=== PATIENT | male | born 1955 | race Caucasian/White ===

== ENCOUNTER 2016-08-15 21:48 | Emergency (ER) | payer MEDICARE ==
[~2016-08-15] VITALS: Ht 182.9 cm; Wt 102.5 kg
[2016-08-15 22:01] VITALS: BP 118/75
[2016-08-15] MEDS ORDERED: PANTOPRAZOLE 40 MG IV IVPush STA (22:37)
[2016-08-15] MEDS ORDERED: PANTOPRAZOLE 40 MG IV ONE (22:56)
[2016-08-15] MEDS ORDERED: ONDANSETRON 2MG/ML, 2ML ONE (22:57)
[2016-08-15] MEDS ORDERED: ONDANSETRON 2MG/ML, 2ML IVPush ONE (23:00)
[2016-08-15] MEDS ORDERED: SODIUM CHLORIDE 0.9% 1,000ML IVBOLUS ONE (23:00)
== END 2016-08-15 23:12 | disposition home or self-care (01) ==
LOC: ED 22:42
DX: R11.2 Nausea with vomiting, unspecified (principal)
CPT/HCPCS: 99283

== ENCOUNTER 2017-05-12 09:23 | Emergency (ER) | payer MEDICARE ==
[~2017-05-12] VITALS: Ht 180.3 cm; Wt 70.0 kg
[2017-05-12] MEDS ORDERED: DIAZ2TAB PO (09:58)
[2017-05-12 13:01] VITALS: BP 121/79
== END 2017-05-12 13:03 ==
LOC: ED 10:56
DX: S01.81XA Laceration without foreign body of other part of head, initial encounter (principal); M19.90 Unspecified osteoarthritis, unspecified site; Z86.73 Personal history of transient ischemic attack (TIA), and cerebral infarction without residual deficits; X58.XXXA Exposure to other specified factors, initial encounter; Y93.89 Activity, other specified; Y92.89 Other specified places as the place of occurrence of the external cause; Y99.9 Unspecified external cause status
CPT/HCPCS: 99283; 99285

== ENCOUNTER 2017-05-23 12:12 | Inpatient (IN) | payer MEDICARE ==
[~2017-05-23] VITALS: Ht 182.9 cm; Wt 69.3 kg
[~2017-05-23 12:12] MED LIST: DIAZ2TAB PO
[2017-05-23] MEDS ORDERED: SODIUM CHLORIDE FLUSH 10ML SYR IVF ONE (13:00)
[2017-05-23 13:11] LABS: MEAN CORPUSCULAR HEMOGLOBIN 25.7 pg (27.5-34.5); MEAN CORPUSCULAR HGB CONC 32.3 g/dL (33.2-36.2); MEAN CORPUSCULAR VOLUME 79.6 fL (81-97); MEAN PLATELET VOLUME 7.1 fL (7.4-10.4); PLATELET COUNT 376 x10^3/uL (130-400); RED BLOOD COUNT 4.93 x10^6/uL (4.38-5.82); RED CELL DISTRIBUTION WIDTH 16.4 % (9.4-14.8)
[2017-05-23 13:18] LABS: ALBUMIN 2.6 g/dL (3.4-5.0); ANION GAP 7 mmol/L (5-15); CALCIUM 8.9 mg/dL (8.5-10.1); CHLORIDE 104 mmol/L (98-107); CREATININE 0.84 mg/dL (0.7-1.3)
[2017-05-23] MEDS ORDERED: SODIUM CHLORIDE 0.9% 1,000 ML IV ONE (13:45)
[2017-05-23 13:54] LABS: MD YES
[2017-05-23 13:56] LABS: BAND#(MANUAL) 1.95 x10^3/uL; BANDS%(MANUAL) 9 % (0-7); LYMPH#(MANUAL) 0.65 x10^3/uL (1-3.4); LYMPHS% (MANUAL) 3 % (22-44); MONOS% (MANUAL) 6 % (2-9); SEG#(MANUAL) 17.79 x10^3/uL (1.8-6.8); SEGS% (MANUAL) 82 % (42-75)
[2017-05-23 13:57] LABS: <PLATELET ESTIMATE> ADEQUATE; <PLT MORPHOLOGY> NORMAL PLT MORPH; <RBC MORPHOLOGY> NORMAL
[2017-05-23] MEDS ORDERED: LEVOFLOXACIN/PMX 500MG/100ML 100 ML ONE (13:59)
[2017-05-23] MEDS ORDERED: SODIUM CHLORIDE FLUSH 10ML SYR IVF PRN (14:00)
[2017-05-23] MEDS ORDERED: LEVOFLOXACIN/PMX 500MG/100ML 100 ML IVPB ONE (14:00)
[2017-05-23] MEDS ORDERED: ARTIFICIAL TEARS OPHTH SOLN 15ML EACHEYE PRN (15:00)
[2017-05-23] MEDS ORDERED: LABETALOL 5MG/ML, 20ML IVPush PRN (15:00)
[2017-05-23] MEDS ORDERED: POLYETHYLENE GLYCOL 17 GM PACKET PO PRN (15:00)
[2017-05-23] MEDS ORDERED: ONDANSETRON ODT 4 MG PO PRN (15:00)
[2017-05-23] MEDS: AMPICILLIN/SULBACTAM 3 GM in SODIUM CHLORIDE 0.9% 100 ML IV SCH ×2 (15:31→21:48)
[2017-05-23] MEDS: ENOXAPARIN 40 MG/0.4 ML SQ SCH (16:00)
[2017-05-23 17:45] VITALS: BP 107/68
[2017-05-23] MEDS: DOXYCYCLINE 100MG TABLET PO SCH (21:46)
[2017-05-23] MEDS: DIAZEPAM 2 MG TABLET PO SCH (21:47)
[2017-05-24 01:14] VITALS: BP 111/69
[2017-05-24] MEDS: AMPICILLIN/SULBACTAM 3 GM in SODIUM CHLORIDE 0.9% 100 ML IV SCH ×4 (03:37→21:33)
[2017-05-24 06:51] VITALS: BP 96/59
[2017-05-24 08:02] LABS: ALANINE AMINOTRANSFERASE 11 U/L (12-78); ALBUMIN 2.1 g/dL (3.4-5.0); ANION GAP 7 mmol/L (5-15); CALCIUM 8.1 mg/dL (8.5-10.1); CHLORIDE 105 mmol/L (98-107); CREATININE 0.65 mg/dL (0.7-1.3)
[2017-05-24 08:04] LABS: ALKALINE PHOSPHATASE 80 U/L (45-117); BILIRUBIN,TOTAL 0.2 mg/dL (0.2-1.0); TOTAL PROTEIN 5.9 g/dL (6.4-8.2)
[2017-05-24 08:07] LABS: MEAN CORPUSCULAR HEMOGLOBIN 25.6 pg (27.5-34.5); MEAN CORPUSCULAR HGB CONC 32.4 g/dL (33.2-36.2); MEAN CORPUSCULAR VOLUME 79.2 fL (81-97); PLATELET COUNT 323 x10^3/uL (130-400); RED BLOOD COUNT 4.15 x10^6/uL (4.38-5.82); RED CELL DISTRIBUTION WIDTH 16.3 % (9.4-14.8)
[2017-05-24 08:25] LABS: BASOPHILS # (AUTO) 0.01 x10^3/uL (0-0.1); BASOPHILS % (AUTO) 0 % (0-1); EOSINOPHILS # (AUTO) 0.03 x10^3/uL (0-0.4); EOSINOPHILS % (AUTO) 0 % (1-7); LYMPHOCYTES # (AUTO) 1.04 x10^3/uL (1-3.4); LYMPHOCYTES % (AUTO) 7 % (22-44); MD MORPH REVIEW ONLY; MONOCYTES # (AUTO) 1.12 x10^3/uL (0.2-0.8); MONOCYTES % (AUTO) 8 % (2-9); NEUTROPHILS # (AUTO) 11.91 x10^3/uL (1.8-6.8); NEUTROPHILS % (AUTO) 84 % (42-75)
[2017-05-24 08:26] LABS: ANISOCYTOSIS 1+; HYPOCHROMIA 1+; MICROCYTOSIS 1+
[2017-05-24 08:27] LABS: <PLATELET ESTIMATE> ADEQUATE; <PLT MORPHOLOGY> NORMAL PLT MORPH; POLYCHROMASIA 1+
[2017-05-24] MEDS: DIVALPROEX 500 MG TAB.ER.24H PO SCH (11:18)
[2017-05-24] MEDS: SENNA/DOCUSATE TABLET PO SCH (11:18)
[2017-05-24] MEDS: DOXYCYCLINE 100MG TABLET PO SCH ×2 (11:18→21:32)
[2017-05-24] MEDS ORDERED: MAGNESIUM SULFATE PMX 2GM/50ML 50 ML IV ONE (11:30)
[2017-05-24] MEDS: IRON SUCROSE COMPLEX 100MG/5ML IV SCH (13:59)
[2017-05-24 15:04] VITALS: BP 100/64
[2017-05-24] MEDS: ENOXAPARIN 40 MG/0.4 ML SQ SCH (16:22)
[2017-05-24 21:29] VITALS: BP 126/77
[2017-05-24] MEDS: DIAZEPAM 2 MG TABLET PO SCH (21:32)
[2017-05-25 00:18] LABS: MICROSCOPIC NOT IND
[2017-05-25 00:21] LABS: CULTURE INDICATED? NO
[2017-05-25 02:49] VITALS: BP 113/61
[2017-05-25] MEDS: AMPICILLIN/SULBACTAM 3 GM in SODIUM CHLORIDE 0.9% 100 ML IV SCH ×4 (03:02→21:44)
[2017-05-25 05:12] LABS: BASOPHILS # (AUTO) 0.02 x10^3/uL (0-0.1); BASOPHILS % (AUTO) 0 % (0-1); EOSINOPHILS # (AUTO) 0.12 x10^3/uL (0-0.4); EOSINOPHILS % (AUTO) 1 % (1-7); LYMPHOCYTES # (AUTO) 1.26 x10^3/uL (1-3.4); LYMPHOCYTES % (AUTO) 13 % (22-44); MD NO; MEAN CORPUSCULAR HEMOGLOBIN 25.9 pg (27.5-34.5); MEAN CORPUSCULAR HGB CONC 32.5 g/dL (33.2-36.2); MEAN CORPUSCULAR VOLUME 79.8 fL (81-97); MEAN PLATELET VOLUME 7.3 fL (7.4-10.4); MONOCYTES # (AUTO) 1.19 x10^3/uL (0.2-0.8); MONOCYTES % (AUTO) 12 % (2-9); NEUTROPHILS # (AUTO) 7.26 x10^3/uL (1.8-6.8); NEUTROPHILS % (AUTO) 74 % (42-75); PLATELET COUNT 324 x10^3/uL (130-400); RED BLOOD COUNT 3.89 x10^6/uL (4.38-5.82); RED CELL DISTRIBUTION WIDTH 16.8 % (9.4-14.8)
[2017-05-25 05:20] LABS: ANION GAP 7 mmol/L (5-15); CHLORIDE 104 mmol/L (98-107)
[2017-05-25 05:35] LABS: ALANINE AMINOTRANSFERASE 24 U/L (12-78); ALKALINE PHOSPHATASE 92 U/L (45-117); BILIRUBIN,TOTAL 0.7 mg/dL (0.2-1.0); CREATININE 0.48 mg/dL (0.7-1.3); TOTAL PROTEIN 5.8 g/dL (6.4-8.2)
[2017-05-25 07:13] VITALS: BP 116/72
[2017-05-25] MEDS: DOXYCYCLINE 100MG TABLET PO SCH ×2 (09:06→21:44)
[2017-05-25] MEDS: DIVALPROEX 500 MG TAB.ER.24H PO SCH (09:07)
[2017-05-25] MEDS: SENNA/DOCUSATE TABLET PO SCH (09:07)
[2017-05-25] MEDS: IRON SUCROSE COMPLEX 100MG/5ML IV SCH (09:07)
[2017-05-25 15:04] VITALS: BP 120/68
[2017-05-25] MEDS: ENOXAPARIN 40 MG/0.4 ML SQ SCH (16:16)
[2017-05-25 18:50] VITALS: BP 112/65
[2017-05-25] MEDS: DIAZEPAM 2 MG TABLET PO SCH (21:44)
[2017-05-26 02:30] VITALS: BP 102/64
[2017-05-26] MEDS: AMPICILLIN/SULBACTAM 3 GM in SODIUM CHLORIDE 0.9% 100 ML IV SCH ×2 (02:44→10:40)
[2017-05-26] MEDS: ONDANSETRON 2MG/ML, 2ML IVPush PRN ×2 (02:49→16:41)
[2017-05-26] MEDS: HYDROcodone/APAP 5/325 TABLET PO PRN ×2 (04:45→10:40)
[2017-05-26 05:03] LABS: BASOPHILS # (AUTO) 0.04 x10^3/uL (0-0.1); BASOPHILS % (AUTO) 0 % (0-1); EOSINOPHILS # (AUTO) 0.09 x10^3/uL (0-0.4); EOSINOPHILS % (AUTO) 1 % (1-7); LYMPHOCYTES # (AUTO) 1.45 x10^3/uL (1-3.4); LYMPHOCYTES % (AUTO) 14 % (22-44); MD NO; MEAN CORPUSCULAR HEMOGLOBIN 25.3 pg (27.5-34.5); MEAN CORPUSCULAR HGB CONC 32.3 g/dL (33.2-36.2); MEAN CORPUSCULAR VOLUME 78.4 fL (81-97); MEAN PLATELET VOLUME 7.1 fL (7.4-10.4); MONOCYTES # (AUTO) 1.14 x10^3/uL (0.2-0.8); MONOCYTES % (AUTO) 11 % (2-9); NEUTROPHILS # (AUTO) 7.81 x10^3/uL (1.8-6.8); NEUTROPHILS % (AUTO) 74 % (42-75); PLATELET COUNT 367 x10^3/uL (130-400); RED BLOOD COUNT 4.29 x10^6/uL (4.38-5.82); RED CELL DISTRIBUTION WIDTH 16.1 % (9.4-14.8)
[2017-05-26 05:13] LABS: ALANINE AMINOTRANSFERASE 27 U/L (12-78); ALBUMIN 2.3 g/dL (3.4-5.0); ANION GAP 7 mmol/L (5-15); CALCIUM 8.4 mg/dL (8.5-10.1); CHLORIDE 104 mmol/L (98-107); CREATININE 0.52 mg/dL (0.7-1.3)
[2017-05-26 05:17] LABS: ALKALINE PHOSPHATASE 92 U/L (45-117); BILIRUBIN,TOTAL 0.3 mg/dL (0.2-1.0); TOTAL PROTEIN 6.7 g/dL (6.4-8.2)
[2017-05-26 07:48] VITALS: BP 114/75
[2017-05-26] MEDS: IRON SUCROSE COMPLEX 100MG/5ML IV SCH (10:32)
[2017-05-26] MEDS: DOXYCYCLINE 100MG TABLET PO SCH ×2 (10:32→20:42)
[2017-05-26] MEDS: DIVALPROEX 500 MG TAB.ER.24H PO SCH (10:32)
[2017-05-26] MEDS: SENNA/DOCUSATE TABLET PO SCH (10:32)
[2017-05-26 12:45] VITALS: BP 112/69
[2017-05-26] MEDS: AMOXICILLIN/CLAV 875-125MG TABLET PO SCH ×2 (13:23→20:42)
[2017-05-26] MEDS: ENOXAPARIN 40 MG/0.4 ML SQ SCH (16:00)
[2017-05-26 18:42] VITALS: BP 103/67
[2017-05-26] MEDS: DIAZEPAM 2 MG TABLET PO SCH (20:42)
[2017-05-27 00:09] VITALS: BP 125/79
[2017-05-27 05:10] LABS: MEAN CORPUSCULAR HGB CONC 32.9 g/dL (33.2-36.2); MEAN CORPUSCULAR VOLUME 78.9 fL (81-97); MEAN PLATELET VOLUME 7.3 fL (7.4-10.4); PLATELET COUNT 324 x10^3/uL (130-400); RED BLOOD COUNT 4.15 x10^6/uL (4.38-5.82); RED CELL DISTRIBUTION WIDTH 16.1 % (9.4-14.8)
[2017-05-27 05:12] LABS: CHLORIDE 103 mmol/L (98-107)
[2017-05-27 05:17] LABS: ANION GAP 4 mmol/L (5-15); CALCIUM 8.2 mg/dL (8.5-10.1); CREATININE 0.56 mg/dL (0.7-1.3)
[2017-05-27 05:44] LABS: BASOPHILS # (AUTO) 0.08 x10^3/uL (0-0.1); BASOPHILS % (AUTO) 0 % (0-1); EOSINOPHILS # (AUTO) 0.18 x10^3/uL (0-0.4); EOSINOPHILS % (AUTO) 1 % (1-7); LYMPHOCYTES # (AUTO) 1.88 x10^3/uL (1-3.4); LYMPHOCYTES % (AUTO) 11 % (22-44); MD SCAN; MONOCYTES # (AUTO) 1.76 x10^3/uL (0.2-0.8); MONOCYTES % (AUTO) 10 % (2-9); NEUTROPHILS # (AUTO) 13.97 x10^3/uL (1.8-6.8); NEUTROPHILS % (AUTO) 78 % (42-75)
[2017-05-27 07:30] VITALS: BP 124/57
[2017-05-27] MEDS: IRON SUCROSE COMPLEX 100MG/5ML IV SCH (08:45)
[2017-05-27] MEDS: DIVALPROEX 500 MG TAB.ER.24H PO SCH (08:45)
[2017-05-27] MEDS: DOXYCYCLINE 100MG TABLET PO SCH ×2 (08:45→20:42)
[2017-05-27] MEDS: SENNA/DOCUSATE TABLET PO SCH (08:45)
[2017-05-27] MEDS: AMOXICILLIN/CLAV 875-125MG TABLET PO SCH ×2 (08:45→20:42)
[2017-05-27] MEDS: HYDROcodone/APAP 5/325 TABLET PO PRN (11:28)
[2017-05-27 13:20] VITALS: BP 96/60
[2017-05-27] MEDS: ENOXAPARIN 40 MG/0.4 ML SQ SCH (15:36)
[2017-05-27 20:35] VITALS: BP 103/66
[2017-05-27] MEDS: DIAZEPAM 2 MG TABLET PO SCH (20:42)
[2017-05-28 05:18] LABS: BASOPHILS # (AUTO) 0.04 x10^3/uL (0-0.1); BASOPHILS % (AUTO) 0 % (0-1); EOSINOPHILS # (AUTO) 0.13 x10^3/uL (0-0.4); EOSINOPHILS % (AUTO) 1 % (1-7); LYMPHOCYTES # (AUTO) 1.68 x10^3/uL (1-3.4); LYMPHOCYTES % (AUTO) 16 % (22-44); MD NO; MEAN CORPUSCULAR HEMOGLOBIN 25.9 pg (27.5-34.5); MEAN CORPUSCULAR HGB CONC 32.7 g/dL (33.2-36.2); MEAN PLATELET VOLUME 6.8 fL (7.4-10.4); MONOCYTES % (AUTO) 9 % (2-9); NEUTROPHILS # (AUTO) 7.79 x10^3/uL (1.8-6.8); NEUTROPHILS % (AUTO) 73 % (42-75); PLATELET COUNT 403 x10^3/uL (130-400); RED CELL DISTRIBUTION WIDTH 16.6 % (9.4-14.8)
[2017-05-28 05:27] LABS: ANION GAP 6 mmol/L (5-15); CALCIUM 7.9 mg/dL (8.5-10.1); CHLORIDE 102 mmol/L (98-107); CREATININE 0.61 mg/dL (0.7-1.3)
[2017-05-28 06:40] VITALS: BP 113/69
[2017-05-28 07:45] VITALS: BP 146/81
[2017-05-28] MEDS: SENNA/DOCUSATE TABLET PO SCH (09:00)
[2017-05-28] MEDS: DOXYCYCLINE 100MG TABLET PO SCH ×2 (10:23→19:58)
[2017-05-28] MEDS: AMOXICILLIN/CLAV 875-125MG TABLET PO SCH ×2 (10:24→19:58)
[2017-05-28] MEDS: DIVALPROEX 500 MG TAB.ER.24H PO SCH (10:24)
[2017-05-28] MEDS: FERROUS SULFATE 325 MG TABLET PO SCH ×2 (12:00→16:18)
[2017-05-28] MEDS: ENOXAPARIN 40 MG/0.4 ML SQ SCH (16:18)
[2017-05-28 19:47] VITALS: BP 109/74
[2017-05-28] MEDS: QUETIAPINE 25MG TABLET PO SCH (19:58)
[2017-05-28] MEDS ORDERED: IRON SUCROSE COMPLEX 100MG/5ML IV SCH (21:00)
[2017-05-29 03:06] VITALS: BP 113/70
[2017-05-29 07:00] VITALS: BP 105/67
[2017-05-29] MEDS: FERROUS SULFATE 325 MG TABLET PO SCH ×2 (08:31→12:46)
[2017-05-29] MEDS: QUETIAPINE 25MG TABLET PO SCH (08:33)
[2017-05-29] MEDS: SENNA/DOCUSATE TABLET PO SCH (08:33)
[2017-05-29] MEDS: AMOXICILLIN/CLAV 875-125MG TABLET PO SCH (08:34)
[2017-05-29] MEDS ORDERED: DIVALPROEX 250 MG TAB.ER.24H PO SCH (09:00)
[2017-05-29] MEDS ORDERED: PEG15DRO4 EACHEYE (11:58)
[2017-05-29] MEDS ORDERED: SENN1TAB7 PO (11:58)
[2017-05-29] MEDS ORDERED: ENOX40SY4 SQ (11:58)
[2017-05-29] MEDS ORDERED: DOXY100T PO (11:58)
[2017-05-29] MEDS ORDERED: AMOX1TAB12 PO (11:58)
[2017-05-29] MEDS ORDERED: ONDA4TAB13 PO (11:58)
[2017-05-29] MEDS ORDERED: FERR-36 PO (11:58)
[2017-05-29] MEDS ORDERED: DIVA250T PO (11:58)
[2017-05-29] MEDS ORDERED: QUET25TA PO (11:58)
[2017-05-29] MEDS ORDERED: POLY17PO5 PO (11:58)
[2017-05-29] MEDS: HYDROcodone/APAP 5/325 TABLET PO PRN (12:58)
[2017-05-29] MEDS ORDERED: AMOXICILLIN/CLAV 875-125MG TABLET PO SCH (21:00)
[2017-05-29] MEDS ORDERED: DOXYCYCLINE 100MG TABLET PO SCH (21:00)
== END 2017-05-29 14:02 | DRG 177 ==
LOC: ED 13:44 → EDIP 13:45 → ED 14:07 → 3NE 17:57
PROVIDERS: ADMIT Internal Medicine; ATTEND Internal Medicine
DX: J69.0 Pneumonitis due to inhalation of food and vomit (principal); J96.01 Acute respiratory failure with hypoxia; E43 Unspecified severe protein-calorie malnutrition; F02.81 Dementia in other diseases classified elsewhere, unspecified severity, with behavioral disturbance; R45.851 Suicidal ideations; D50.9 Iron deficiency anemia, unspecified; E11.9 Type 2 diabetes mellitus without complications; F23 Brief psychotic disorder; J98.11 Atelectasis; S22.41XA Multiple fractures of ribs, right side, initial encounter for closed fracture; D53.9 Nutritional anemia, unspecified; F17.210 Nicotine dependence, cigarettes, uncomplicated; F32.9 Major depressive disorder, single episode, unspecified; G40.909 Epilepsy, unspecified, not intractable, without status epilepticus; F12.90 Cannabis use, unspecified, uncomplicated; I69.398 Other sequelae of cerebral infarction; Z68.20 Body mass index [BMI] 20.0-20.9, adult; Z87.820 Personal history of traumatic brain injury; Z88.5 Allergy status to narcotic agent
CPT/HCPCS: 36415; 71010; 80048; 80053; 81003; 82040; 82728; 83540; 83550; 83605; 83735; 85025; 87040; 93005; 96365; J0295; J1650; J1756; J1956; J2405; Q0162; J3475